=== PATIENT | male | born 2005 | race Two or more races ===

== ENCOUNTER 2025-03-16 23:53 | Emergency (ER) | payer SELFPAY ==
[2025-03-16 23:57] VITALS: BP 156/86; PULSE 105; TEMP 37.1; O2SAT 97; BMI 33.9
--- NOTE | 2025-03-17 00:07 | PC.NURSE ---
Patient reports loose stool with bright red blood for past 2 weeks.
--- NOTE | 2025-03-17 00:22 | ED_ITS ---
HPI - GI Bleed General Chief complaint: GI Bleed Stated complaint: RECTAL BLEED Time Seen by Provider: 03/17/25 00:02 Mode of arrival: walk-in History of Present Illness HPI Narrative: bloody diarrhea for past 3 weeks. No fever or abdominal pain. occ dizzy when at work but otherwise feels well. Normal appetite Related Data Home Medications ?Medication ?Instructions ?Recorded ?Confirmed No Known Home Medications 03/17/2502/18 Allergies Allergy/AdvReac Type Severity Reaction Status Date / Time No Known Drug Allergies Allergy Verified 03/17/25 00:01 Review of Systems ROS Status of ROS 10 or more systems reviewed and unremark able except as noted in history and below PFSH PFSH Social History Little interest or pleasure in doing things: not at all Feeling down, depressed, or hopeless: not at all Exam Constitutional Vital Signs, click to edit/add: Last Vital Signs Temp 98.7 F 03/16/25 23:57 Pulse 74 03/17/25 02:17 Resp 20 03/17/25 02:17 BP 137/63 03/17/25 02:17 Pulse Ox 97 03/17/25 02:17 O2 Del Method Room Air 03/17/25 02:17 Common normals: no apparent distress, average body habitus, oriented x3, no limitations, healthy appearing, alert and well nourished [facility] Common normals: normocephalic and head/scalp atraumatic Eye Common normals: EOMs intact bilaterally and conjunctivae normal Respiratory Common normals: normal respiratory effort, no retractions, no use of accessory muscles and clear to auscultation bilaterally Cardio Common normals: regular rate, regular rhythm, S1 normal heart sound and S2 normal heart sound GI Common normals: Normal to inspection, nondistended, normoactive bowel sounds present, soft to palpation and non-tender Extremity Common normals: normal to inspection and full ROM Neuro Common normals: oriented x3, CN's II-XII intact bilaterally, moves all extremities and no focal motor deficits Psych Appearance: grossly normal Course Vital Signs Vital signs: Vital Signs Temperature 98.7 F 03/16/25 23:57 Pulse Rate 105 H 03/16/25 23:57 Respiratory Rate 20 03/16/25 23:57 Blood Pressure 156/86 H 03/16/25 23:57 Pulse Oximetry 97 03/16/25 23:57 Temperature 98.7 F 03/16/25 23:57 Pulse Rate 74 03/17/25 02:17 Respiratory Rate 20 03/17/25 02:17 Blood Pressure 137/63 03/17/25 02:17 Pulse Oximetry 97 03/17/25 02:17 Oxygen Delivery Method Room Air 03/17/25 02:17 MDM - GI Bleed MDM Narrative Medical decision making narrative: patient presents complaining of blood diarrhea for past 3 weeks. no abdominal pain. Normal appetite. Exam of abdomen nontender. Stool sample neg for C. difficle. H/H WNL CT with findings of distal colitis and mesenteric adenitis. Patient informed of the above and prescribe Cipro and Flagyl Lab Data Labs: Lab Results 03/17/25 03/17/25 Range/Units 00:35 00:45 WBC 9.5 (4.0-11.0) 10^3/uL RBC 4.82 (4.70-6.10) 10^6/uL Hgb 14.4 (14.0-18.0) g/dL Hct 41.9 L (42.0-54.0) % MCV 86.9 (80.0-94.0) fL MCH 29.9 (25.9-34.0) pg MCHC 34.4 (29.9-35.2) g/dL RDW 12.5 (11.0-15.0) % Plt Count 276 (150-450) 10^3/uL MPV 12.3 (9.5-13.5) fL Neut % (Auto) 52.3 (43.0-75.0) % Lymph % (Auto) 30.3 (20.5-60.0) % [place] % (Auto) 12.5 H (1.7-12.0) % Eos % (Auto) 3.7 (0.9-7.0) % Baso % (Auto) 0.7 (0.2-2.0) % Neut # (Auto) 5.0 (1.4-6.5) 10^3/uL Lymph # (Auto) 2.9 (1.2-3.8) 10^3/uL [place] # (Auto) 1.2 H (0.3-0.8) 10^3/uL Eos # (Auto) 0.4 (0.0-0.7) 10^3/uL Baso # (Auto) 0.1 (0.0-0.1) 10^3/uL Abs Immat Gran (auto) 0.05 H (0.00-0.03) 10^3/uL Imm/Tot Granulo (auto) 0.5 (0.0-0.5) % Sodium 145 (136-145) mmol/L Potassium 3.8 (3.5-5.1) mmol/L Chloride 106 (98-107) mmol/L Carbon Dioxide 29.4 (21.0-32.0) mmol/L Anion Gap 13.4 BUN 11.0 (7.0-18.0) mg/dL Creatinine 1.02 (0.70-1.30) mg/dL Est GFR ( Amer) >60 (>=60 mL/min/1.73m^2) Est GFR (Non-Af Amer) >60 (>=60 mL/min/1.73m^2) BUN/Creatinine Ratio 10.8 Glucose 94 (74-106) mg/dL Lactate 0.8 (0.4-2.0) mmol/L Calcium 9.0 (8.5-10.1) mg/dL Total Bilirubin 0.3 (0.2-1.0) mg/dL AST 19 (15-37) U/L ALT 31 (16-63) U/L Alkaline Phosphatase 86 (46-116) U/L Total Protein 6.9 (6.4-8.2) g/dL Albumin 3.3 L (3.4-5.0) g/dL Globulin 3.6 g/dL Albumin/Globulin Ratio 0.9 C. difficile Toxin PCR Negative Discharge Plan Discharge Chief Complaint: GI Bleed Clinical Impression: Colitis Patient Disposition: Home, Self-Care Prescriptions / Home Meds: No Action No Known Home Medications Print Language: Micronesian Instructions: Colitis (ED) Additional Instructions: follow up with your family doctor this week or early next week Referrals: DARLINE DOMINGUEZ [Primary Care Provider, Family Practice] - 1 week
[2025-03-17] MEDS: 0.9 % SODIUM CHLORIDE 1,000 ML 999 ML IV (00:52)
[2025-03-17 00:53] LABS: Basophils Absolute Auto 0.1 10^3/uL (0.0-0.1); Basophils Percent Auto 0.7 % (0.2-2.0); Eosinophils Absolute Auto 0.4 10^3/uL (0.0-0.7); Eosinophils Percent Auto 3.7 % (0.9-7.0); Hematocrit 41.9 % (42.0-54.0); Hemoglobin 14.4 g/dL (14.0-18.0); Immature Granulocytes Abs Auto 0.05 10^3/uL (0.00-0.03); Immature Granulocytes Pct Auto 0.5 % (0.0-0.5); Lymphocytes Absolute Auto 2.9 10^3/uL (1.2-3.8); Lymphocytes Percent Auto 30.3 % (20.5-60.0); Mean Corpuscular HGB Conc 34.4 g/dL (29.9-35.2); Mean Corpuscular Hemoglobin 29.9 pg (25.9-34.0); Mean Corpuscular Volume 86.9 fL (80.0-94.0); Mean Platelet Volume 12.3 fL (9.5-13.5); Monocytes Absolute Auto 1.2 10^3/uL (0.3-0.8); Monocytes Percent Auto 12.5 % (1.7-12.0); Neutrophils Percent Auto 52.3 % (43.0-75.0); Platelet Count 276 10^3/uL (150-450); Red Blood Count 4.82 10^6/uL (4.70-6.10); Red Cell Distribution Width 12.5 % (11.0-15.0); White Blood Count 9.5 10^3/uL (4.0-11.0)
[2025-03-17 01:10] LABS: Alanine Aminotransferase 31 U/L (16-63); Albumin Globulin Ratio 0.9; Albumin Level 3.3 g/dL (3.4-5.0); Alkaline Phosphatase 86 U/L (46-116); Anion Gap 13.4; Aspartate Amino Transferase 19 U/L (15-37); BUN Creatinine Ratio 10.8; Bilirubin Total 0.3 mg/dL (0.2-1.0); Carbon Dioxide 29.4 mmol/L (21.0-32.0); Chloride 106 mmol/L (98-107); Estimated GFR (African America >60 (>=60 mL/min/1.73m^2); Estimated GFR (Non-African Ame >60 (>=60 mL/min/1.73m^2); Globulin 3.6 g/dL; Glucose 94 mg/dL (74-106); Potassium 3.8 mmol/L (3.5-5.1); Sodium 145 mmol/L (136-145); Total Protein 6.9 g/dL (6.4-8.2)
[2025-03-17 01:12] LABS: Lactate/Lactic Acid 0.8 mmol/L (0.4-2.0)
[2025-03-17 02:13] LABS: C. Difficile PCR NEGATIVE
[2025-03-17 02:17] VITALS: BP 137/63; PULSE 74; O2SAT 97
[2025-03-17] MEDS: CIPROFLOXACIN HCL 500 MG TABLET PO (04:38)
[2025-03-17] MEDS: METRONIDAZOLE 250 MG TABLET 500 MG PO (04:39)
[2025-03-18 12:09] LABS: H. pylori Stool Ag, EIA Negative (Negative)
[2025-03-18 16:09] LABS: Giardia lamblia Ag, EIA Negative (Negative)
[2025-03-18 17:09] LABS: Cryptosporidium EIA Negative (Negative)
== END 2025-03-17 04:45 | disposition home or self-care (01) ==
PROVIDERS: Emergency Provider Internal Medicine; PCP Family Medicine
DX: K52.9 Noninfective gastroenteritis and colitis, unspecified (principal); I88.0 Nonspecific mesenteric lymphadenitis
CPT/HCPCS: 36415; 74177; 80053; 83605; 85025; 87045; 87046; 87177; 87209; 87338; 87427; 87493; 99285; Q9967

== ENCOUNTER 2025-04-02 20:26 | Emergency (ER) | payer SELFPAY ==
[2025-04-02] VITALS (16 sets, daily range): BP systolic 120–138; BP diastolic 65–79; PULSE 88–98; TEMP 37.1–38.1; O2SAT 95–98; BMI 33.9
--- NOTE | 2025-04-02 21:10 | ED.GENADUL1 ---
Documented by User: Roly Mcdonald NP 04/02/25 22:07 HPI HPI - General Adult General Chief complaint: Abdominal Pain Stated complaint: ABDOMINAL PAIN Time Seen by Provider: 04/02/25 20:44 Source: patient Mode of arrival: walk-in Limitations: no limitations History of Present Illness HPI narrative: The patient is a 20-year-old male who presents to the emergency department today for evaluation of concerns for bloody stool. Endorses for the past month he has had approximately 8 episodes of bright red blood in his stool daily. He endorses some lower abdominal discomfort that he states is ongoing from prior evaluation in the ER last month. He denies any nausea/vomiting. He mentions he did develop a fever today of 100.5 which she did not take any antipyretics for. No dizziness/syncope, chest pain, shortness of breath, urinary symptoms, or back/flank pain. Denies any significant medical or surgical history. Related Data Home Medications ?Medication ?Instructions ?Recorded ?Confirmed No Known Home Medications 03/17/25 04/02/25 Allergies Allergy/AdvReac Type Severity Reaction Status Date / Time No Known Drug Allergies Allergy Verified 04/02/25 20:34 Opioid HPI Opioid Management Most Recent Opioid Data: Last Pain Scale 8 Today, 21:41 Review of Systems ROS Status of ROS 10 or more systems reviewed and unremarkable except as noted in history and below PFSH PFSH Social History Little interest or pleasure in doing things: not at all Feeling down, depressed, or hopeless: not at all Exam Narrative Exam Narrative: Constituational: Awake/ alert, no apparent distress, well hydrated HENMT: normocephalic, external ears normal, moist oral mucous membranes and oropharynx normal Eyes: EOMI and conjunctivae normal Neck: ROM intact Chest: inspection of chest normal Respiratory: Normal respiratory effort, clear to auscultation bilaterally Cardio: regular rate and regular rhythm GI: soft to palpation and non-tender Rectal: normal rectal tone and external exam, light brown stool present, no hemorrhoids or fissures. Back: nontender MSK: ROM intact, +NVI Skin: no rashes or petechiae Neuro: no focal deficits Psych: mental status grossly normal Constitutional Vital Signs, click to edit/add: Last Vital Signs Temp 98.8 F 04/02/25 23:01 Pulse 88 04/02/25 23:01 Resp 17 04/02/25 23:01 BP 120/65 04/02/25 23:01 Pulse Ox 98 04/02/25 23:01 O2 Del Method Room Air 04/02/25 20:34 Course Vital Signs Vital signs: Vital Signs Pulse Oximetry 98 04/02/25 20:33 Temperature 98.8 F 04/02/25 23:01 Pulse Rate 88 04/02/25 23:01 Respiratory Rate 17 04/02/25 23:01 Blood Pressure 120/65 04/02/25 23:01 Pulse Oximetry 98 04/02/25 23:01 Oxygen Delivery Method Room Air 04/02/25 20:34 Medical Decision Making MDM Narrative Medical decision making narrative: Patient is a nontoxic-appearing 20-year-old male who presented to the emergency department today for evaluation concerns for 1 month history of lower abdominal discomfort with multiple bright red bloody stools per day now returning to the ER with a fever. Historically patient had been seen in the ER 03/17 complaint of bloody stools and lower abdominal pain. Per chart review patient was diagnosed with colitis and discharged home with Cipro and Flagyl. Historically patient did not follow-up with any medical provider for reevaluation despite having ongoing symptoms. He states he is having the same pain today however now presents with a fever. Examination and vital signs overall stable with exception patient noted to be febrile with temperature 100.5F. Abdominal findings on exam. Patient did receive supportive measures of IV fluids and Tylenol. Labs and CT imaging of abdomen pelvis pending -> care endorsed to Dr. Buchanan (ER attending) 2200p to follow-up on pending labs and imaging and further determine disposition of patient Medical Records Medical records reviewed: Yes I reviewed the patient's medical records Lab Data Lab results reviewed: Yes I reviewed the patient's lab results Labs: Lab Results 04/02/25 04/02/25 Range/Units 21:30 21:55 WBC 10.1 (4.0-11.0) 10^3/uL RBC 4.46 L (4.70-6.10) 10^6/uL Hgb 13.3 L (14.0-18.0) g/dL Hct 39.0 L (42.0-54.0) % MCV 87.4 (80.0-94.0) fL MCH 29.8 (25.9-34.0) pg MCHC 34.1 (29.9-35.2) g/dL RDW 13.0 (11.0-15.0) % Plt Count 281 (150-450) 10^3/uL MPV 11.7 (9.5-13.5) fL Seg Neuts % (Manual) 54.0 (43.0-75.0) Lymphocytes % (Manual) 24.0 (20.5-60.0) % Monocytes % (Manual) 20.0 H (1.7-12.0) % Eosinophils % (Manual) 2.0 (0.9-7.0) % Basophils % (Manual) 0.0 L (0.2-2.0) % Neutrophils # (Manual) 5.45 (1.4-6.5) 10^3/uL Band Neutrophils # 2.4 H (0.0-0.3) 10^3/uL Lymphocytes # (Manual) 2.42 (1.20-3.80) 10^3/uL Monocytes # (Manual) 2.02 H (0.30-0.80) 10^3/uL Eosinophils # (Manual) 0.20 (0.00-0.70) 10^3/uL Basophils # (Manual) 0.00 (0.00-0.10) 10^3/uL PT 10.8 (9.0-11.6) sec INR 1.02 Sodium 144 (136-145) mmol/L Potassium 3.5 (3.5-5.1) mmol/L Chloride 107 (98-107) mmol/L Carbon Dioxide 28.3 (21.0-32.0) mmol/L Anion Gap 12.2 BUN 8.0 (7.0-18.0) mg/dL Creatinine 1.09 (0.70-1.30) mg/dL Est GFR ( Amer) >60 (>=60 mL/min/1.73m^2) Est GFR (Non-Af Amer) >60 (>=60 mL/min/1.73m^2) BUN/Creatinine Ratio 7.3 Glucose 102 (74-106) mg/dL Lactate 1.0 (0.4-2.0) mmol/L Calcium 8.5 (8.5-10.1) mg/dL Total Bilirubin 0.5 (0.2-1.0) mg/dL AST 26 (15-37) U/L ALT 52 (16-63) U/L Alkaline Phosphatase 69 (46-116) U/L Total Protein 6.2 L (6.4-8.2) g/dL Albumin 3.0 L (3.4-5.0) g/dL Globulin 3.2 g/dL Albumin/Globulin Ratio 0.9 Stool Occult Blood Positive A Imaging Data CT scan - abdomen: Radiologist's impression: ITS Impressions Abdomen/Pelvis CT 04/02/25 21:47 IMPRESSION: There is wall thickening with adjacent fat stranding along the transverse and descending colon suggesting colitis which may be infectious or inflammatory. No bowel obstruction or obstructive uropathy. Impression dictated by: Lowell Almaraz M.D. 04/02/2025 10:30 PM Dictation Location: [place] Electronically authenticated by: [id number] Y Date: 04/02/2025 22:30 Discharge Plan Discharge Chief Complaint: Abdominal Pain Clinical Impression: Abdominal pain, Colitis Patient Disposition: Home, Self-Care Prescriptions / Home Meds: No Action No Known Home Medications Print Language: Indian Instructions: Colitis (ED) Additional Instructions: follow up in the next 2-3 days for recheck Referrals: DARLINE DOMINGUEZ [Primary Care Provider, Family Practice] - 1 week Documented by User: Lee Buchanan MD 04/02/25 23:05 HPI HPI - General Adult General Chief complaint: Abdominal Pain Stated complaint: ABDOMINAL PAIN Time Seen by Provider: 04/02/25 20:44 Related Data Home Medications ?Medication ?Instructions ?Recorded ?Confirmed No Known Home Medications 03/17/25 04/02/25 Allergies Allergy/AdvReac Type Severity Reaction Status Date / Time No Known Drug Allergies Allergy Verified 04/02/25 20:34 Opioid HPI Opioid Management Most Recent Opioid Data: Last Pain Scale 8 Today, 21:41 PFSH PFSH Social History Little interest or pleasure in doing things: not at all Feeling down, depressed, or hopeless: not at all Exam Constitutional Vital Signs, click to edit/add: Last Vital Signs Temp 98.8 F 04/02/25 23:01 Pulse 88 04/02/25 23:01 Resp 17 04/02/25 23:01 BP 120/65 04/02/25 23:01 Pulse Ox 98 04/02/25 23:01 O2 Del Method Room Air 04/02/25 20:34 Course Vital Signs Vital signs: Vital Signs Pulse Oximetry 98 04/02/25 20:33 Temperature 98.8 F 04/02/25 23:01 Pulse Rate 88 04/02/25 23:01 Respiratory Rate 17 04/02/25 23:01 Blood Pressure 120/65 04/02/25 23:01 Pulse Oximetry 98 04/02/25 23:01 Oxygen Delivery Method Room Air 04/02/25 20:34 Medical Decision Making MDM Narrative Medical decision making narrative: Patient is a nontoxic-appearing 20-year-old male who presented to the emergency department today for evaluation concerns for 1 month history of lower abdominal discomfort with multiple bright red bloody stools per day now returning to the ER with a fever. Historically patient had been seen in the ER 03/17 complaint of bloody stools and lower abdominal pain. Per chart review patient was diagnosed with colitis and discharged home with Cipro and Flagyl. Historically patient did not follow-up with any medical provider for reevaluation despite having ongoing symptoms. He states he is having the same pain today however now presents with a fever. Examination and vital signs overall stable with exception patient noted to be febrile with temperature 100.5F. Abdominal findings on exam. Patient did receive supportive measures of IV fluids and Tylenol. Labs and CT imaging of abdomen pelvis pending -> care endorsed to Dr. Buchanan (ER attending) 2200p to follow-up on pending labs and imaging and further determine disposition of patient care transferred. Patient re evaluated and is in no distress. CT results return and are positive for colitis. His Hgb has decreased from 14.4 to 13.3 in 2 weeks. Remaining labs WNL. Patient was treated last time with course of cipro and flagyl. States it did help some but did not completely resolve. Will change antibiotics to Bactrimds and flagyl. Informed of the importance of follow up with his doctor as he will also need follow up with GI clinically stable. WBC normal. Discharged home Lab Data Labs: Lab Results 04/02/25 04/02/25 Range/Units 21:30 21:55 WBC 10.1 (4.0-11.0) 10^3/uL RBC 4.46 L (4.70-6.10) 10^6/uL Hgb 13.3 L (14.0-18.0) g/dL Hct 39.0 L (42.0-54.0) % MCV 87.4 (80.0-94.0) fL MCH 29.8 (25.9-34.0) pg MCHC 34.1 (29.9-35.2) g/dL RDW 13.0 (11.0-15.0) % Plt Count 281 (150-450) 10^3/uL MPV 11.7 (9.5-13.5) fL Seg Neuts % (Manual) 54.0 (43.0-75.0) Lymphocytes % (Manual) 24.0 (20.5-60.0) % Monocytes % (Manual) 20.0 H (1.7-12.0) % Eosinophils % (Manual) 2.0 (0.9-7.0) % Basophils % (Manual) 0.0 L (0.2-2.0) % Neutrophils # (Manual) 5.45 (1.4-6.5) 10^3/uL Band Neutrophils # 2.4 H (0.0-0.3) 10^3/uL Lymphocytes # (Manual) 2.42 (1.20-3.80) 10^3/uL Monocytes # (Manual) 2.02 H (0.30-0.80) 10^3/uL Eosinophils # (Manual) 0.20 (0.00-0.70) 10^3/uL Basophils # (Manual) 0.00 (0.00-0.10) 10^3/uL PT 10.8 (9.0-11.6) sec INR 1.02 Sodium 144 (136-145) mmol/L Potassium 3.5 (3.5-5.1) mmol/L Chloride 107 (98-107) mmol/L Carbon Dioxide 28.3 (21.0-32.0) mmol/L Anion Gap 12.2 BUN 8.0 (7.0-18.0) mg/dL Creatinine 1.09 (0.70-1.30) mg/dL Est GFR ( Amer) >60 (>=60 mL/min/1.73m^2) Est GFR (Non-Af Amer) >60 (>=60 mL/min/1.73m^2) BUN/Creatinine Ratio 7.3 Glucose 102 (74-106) mg/dL Lactate 1.0 (0.4-2.0) mmol/L Calcium 8.5 (8.5-10.1) mg/dL Total Bilirubin 0.5 (0.2-1.0) mg/dL AST 26 (15-37) U/L ALT 52 (16-63) U/L Alkaline Phosphatase 69 (46-116) U/L Total Protein 6.2 L (6.4-8.2) g/dL Albumin 3.0 L (3.4-5.0) g/dL Globulin 3.2 g/dL Albumin/Globulin Ratio 0.9 Stool Occult Blood Positive A Imaging Data CT scan - abdomen: Radiologist's impression: ITS Impressions Abdomen/Pelvis CT 04/02/25 21:47 IMPRESSION: There is wall thickening with adjacent fat stranding along the transverse and descending colon suggesting colitis which may be infectious or inflammatory. No bowel obstruction or obstructive uropathy. Impression dictated by: Lowell Almaraz M.D. 04/02/2025 10:30 PM Dictation Location: [place] [address] Electronically authenticated by: [id number] Y Date: 04/02/2025 22:30 Discharge Plan Discharge Chief Complaint: Abdominal Pain Clinical Impression: Abdominal pain, Colitis Patient Disposition: Home, Self-Care Prescriptions / Home Meds: No Action No Known Home Medications Print Language: Indian Instructions: Colitis (ED) Additional Instructions: follow up in the next 2-3 days for recheck Referrals: DARLINE DOMINGUEZ [Primary Care Provider, Family Practice] - 1 week
[2025-04-02 21:46] LABS: Hematocrit 39.0 % (42.0-54.0); Hemoglobin 13.3 g/dL (14.0-18.0); Mean Corpuscular HGB Conc 34.1 g/dL (29.9-35.2); Mean Corpuscular Hemoglobin 29.8 pg (25.9-34.0); Mean Corpuscular Volume 87.4 fL (80.0-94.0); Platelet Count 281 10^3/uL (150-450); Red Blood Count 4.46 10^6/uL (4.70-6.10); White Blood Count 10.1 10^3/uL (4.0-11.0)
--- NOTE | 2025-04-02 21:47 | CT_ITS ---
[address] [address] Patient Name: ROSEMARY JOHNSON MRN: [id number] date: 2005 Sex: M Assigned Patient Location: ER Current Patient Location: ER Accession/Order Number: [id number] Exam Date: 04/02/2025 22:24 Report Date: 04/02/2025 22:30 At the request of: KIMBERLI JEFFERSON NP Procedure: CT abdomen pelvis w con CT abdomen pelvis w con 04/02/2025 10:20 PM SIGNS AND SYMPTOMS: Lower abdominal pain, GI bleeding TECHNIQUE: Multidetector ct axial images of the abdomen and pelvis were obtained with IV contrast. Multiplanar reformats were performed and reviewed to further define anatomy and possible pathology. CT was performed with one or more of the following dose reduction techniques: Automated exposure control, adjustment of the mA and/or kV according to patient size, or use of iterative reconstruction technique. COMPARISON: None. FINDINGS: Lower Chest: Within normal limits. ABDOMEN: Liver: Within normal limits. Bile Ducts: Normal caliber. Gallbladder: No calcified gallstones. Normal caliber wall. Pancreas: Within normal limits. Spleen: Within normal limits. Adrenals: Within normal limits. Kidneys: Within normal limits. Pelvis: Reproductive Organs: No pelvic masses. Ureters: Within normal limits. Bladder: Within normal limits. Bowel: There is wall thickening with adjacent fat stranding along the transverse and descending colon suggesting colitis which may be infectious or inflammatory. There is a normal appendix in the right lower quadrant. Mesenteric Lymph Nodes: No enlarged mesenteric lymph nodes. Peritoneum: No ascites or free air, no fluid collection. Vessels: within normal limits Retroperitoneum: Within normal limits. Abdominal Wall: Within normal limits. Bones: There is a similar focal area of lucency within the L3 vertebral body which is nonspecific but possibly represents an atypical hemangioma. CT/CT abdomen pelvis w con IMPRESSION: There is wall thickening with adjacent fat stranding along the transverse and descending colon suggesting colitis which may be infectious or inflammatory. No bowel obstruction or obstructive uropathy. Impression dictated by: Lowell Almaraz M.D. 04/02/2025 10:30 PM Dictation Location: [place] [address] Electronically authenticated by: [id number] Y Date: 04/02/2025 22:30
[2025-04-02] MEDS: ACETAMINOPHEN 500 MG TABLET 1000 MG PO (21:52)
[2025-04-02 22:02] LABS: INR 1.02; Prothrombin Time 10.8 sec (9.0-11.6)
[2025-04-02 22:04] LABS: Alanine Aminotransferase 52 U/L (16-63); Albumin Globulin Ratio 0.9; Albumin Level 3.0 g/dL (3.4-5.0); Alkaline Phosphatase 69 U/L (46-116); Anion Gap 12.2; Aspartate Amino Transferase 26 U/L (15-37); Blood Urea Nitrogen 8.0 mg/dL (7.0-18.0); Calcium 8.5 mg/dL (8.5-10.1); Carbon Dioxide 28.3 mmol/L (21.0-32.0); Chloride 107 mmol/L (98-107); Estimated GFR (African America >60 (>=60 mL/min/1.73m^2); Estimated GFR (Non-African Ame >60 (>=60 mL/min/1.73m^2); Globulin 3.2 g/dL; Glucose 102 mg/dL (74-106); Potassium 3.5 mmol/L (3.5-5.1); Sodium 144 mmol/L (136-145); Total Protein 6.2 g/dL (6.4-8.2)
[2025-04-02 22:06] LABS: Lactate/Lactic Acid 1.0 mmol/L (0.4-2.0)
[2025-04-02] MEDS: 0.9 % SODIUM CHLORIDE 1,000 ML 1000 ML IV (22:10)
[2025-04-02 22:18] LABS: Segmented Neut Absolute Manual 5.45 10^3/uL (1.4-6.5); Segmented Neutrophils % Manual 54.0 (43.0-75.0)
[2025-04-02 22:19] LABS: Band Neutrophils Absolute 2.4 10^3/uL (0.0-0.3); Basophils Abs Manual 0.00 10^3/uL (0.00-0.10); Basophils Percent Manual 0.0 % (0.2-2.0); Eosinophils Absolute Manual 0.20 10^3/uL (0.00-0.70); Eosinophils Percent Manual 2.0 % (0.9-7.0); Lymphocytes Absolute Manual 2.42 10^3/uL (1.20-3.80); Lymphocytes Percent Manual 24.0 % (20.5-60.0)
[2025-04-02 22:20] LABS: Monocytes Absolute Manual 2.02 10^3/uL (0.30-0.80); Monocytes Percent Manual 20.0 % (1.7-12.0)
[2025-04-02] MEDS: SULFAMETHOXAZOLE/TRIMETHOPRIM 800-160 MG TABLET 1 TAB PO (22:59)
[2025-04-02] MEDS: METRONIDAZOLE 250 MG TABLET 500 MG PO (22:59)
--- NOTE | 2025-04-02 23:22 | PC.NURSE ---
i gave this patient verbal and written discharge orders along with 2 Rx, and 1 work note and this patient voices yes to understanding these. at time of discharge this patient voices no concerns, needs and shows no signs of distress
== END 2025-04-02 23:21 | disposition home or self-care (01) ==
PROVIDERS: Nurse Practitioner; Emergency Provider Internal Medicine; PCP Family Medicine
DX: K52.9 Noninfective gastroenteritis and colitis, unspecified (principal); R10.30 Lower abdominal pain, unspecified; R50.9 Fever, unspecified
CPT/HCPCS: 36415; 74177; 80053; 83605; 85007; 85027; 85610; 99285; G0328; Q9967